=== PATIENT | male | born 1940 | race Caucasian/White ===

== ENCOUNTER 2023-04-22 10:39 | Inpatient (IN) ==
[2023-04-06 11:25] LABS: Basophils # (Auto) 0.06 K/mcL (0.00-0.30); Basophils % (Auto) 0.7 % (0.0-2.0); Eosinophils # (Auto) 0.09 K/mcL (0.00-0.70); Eosinophils % (Auto) 1.1 % (0.0-7.0); Hematocrit 47.3 % (40.1-51.0); Hemoglobin 16.1 g/dL (13.7-17.5); Lymphocytes # (Auto) 1.49 K/mcL (1.50-4.80); Lymphocytes % (Auto) 18.5 % (15.5-49.0); Mean Platelet Volume 8.4 fL (8.8-12.5); Monocytes # (Auto) 0.83 K/mcL (0.10-0.90); Monocytes % (Auto) 10.3 % (1.0-12.0); Platelet Count 167 K/mcL (140-440); RBC 4.78 M/mcL (4.63-6.08); WBC 8.1 K/mcL (4.5-11.0)
[2023-04-06 11:43] LABS: Blood Urea Nitrogen 15 mg/dL (8-23); Calcium 9.6 mg/dL (8.6-10.4); Carbon Dioxide 33 mmol/L (22-30); Chloride 96 mmol/L (96-108); Glomerular Filtration Rate 86; Glucose 92 mg/dL (70-105)
[2023-04-06 13:59] LABS: INR 1.2 (0.9-1.1); Prothrombin Time 15.5 sec (11.9-14.5)
[2023-04-22] MEDS: ceFAZolin 2 GM in DEXTROSE 5% IN WATER 50 ML IV SCH (11:47)
[2023-04-22] MEDS ORDERED: ROCURONIUM 10 MG/ML ML IV ONE (12:02)
[2023-04-22] MEDS ORDERED: PROPOFOL 200 MG/20 ML VIAL IV ONE (12:02)
[2023-04-22] MEDS ORDERED: ONDANSETRON 4 MG/2 ML VIAL ONE (12:02)
[2023-04-22] MEDS ORDERED: fentaNYL 100 MCG/2 ML VIAL ONE (12:02)
[2023-04-22] MEDS: GENTAMICIN SULFATE IV SCH (12:26)
[2023-04-22] MEDS: SODIUM CHLORIDE 0.9% IV SCH (12:26)
[2023-04-22] MEDS ORDERED: fentaNYL 100 MCG/2 ML VIAL IV PRN (12:36)
[2023-04-22] MEDS ORDERED: IPRATROPIUM/ALBUTEROL 3 ML AMPUL.NEB NEB PRN (12:36)
[2023-04-22] MEDS ORDERED: ONDANSETRON 4 MG/2 ML VIAL IV PRN ×2 (12:36→13:05)
[2023-04-22] MEDS ORDERED: NALOXONE HCL 0.4 MG/ML VIAL IV PRN (12:36)
[2023-04-22] MEDS: LIDOCAINE 2% URO-JET 10 ML JEL.PF.APP UR ONE (12:39)
[2023-04-22] MEDS ORDERED: SUGAMMADEX SODIUM 200 MG/2 ML VIAL IV ONE (13:03)
[2023-04-22] MEDS ORDERED: MAGNESIUM HYDROXIDE 30 ML ORAL.SUSP PO PRN (13:05)
[2023-04-22] MEDS ORDERED: MAG HYDROX/AL HYDROX/SIMETH 30 ML ORAL.SUSP PO PRN (13:05)
[2023-04-22] MEDS ORDERED: HYDROcodone/APAP 5/325MG TABLET PO PRN (13:05)
[2023-04-22] MEDS ORDERED: BISACODYL 10 MG SUPP.RECT PR PRN (13:05)
[2023-04-22] MEDS: DEXTROSE 5%-1/2NS W/20MEQ KCL 1,000 ML IV SCH (14:25)
[2023-04-22] MEDS: 0.9 % SODIUM CHLORIDE 10 ML SYRINGE IV SCH (14:26)
[2023-04-22] MEDS: LACTATED RINGERS 1,000 ML IV SCH (14:42)
[2023-04-23 06:14] LABS: Hematocrit 45.9 % (40.1-51.0); Hemoglobin 14.7 g/dL (13.7-17.5); Mean Cell Volume 106.3 fL (80.0-100.0); Mean Platelet Volume 8.8 fL (8.8-12.5); Platelet Count 150 K/mcL (140-440); RBC 4.32 M/mcL (4.63-6.08); Red Cell Distribution Width 12.3 % (11.5-14.5); WBC 12.8 K/mcL (4.5-11.0)
[2023-04-23 06:40] LABS: Blood Urea Nitrogen 18 mg/dL (8-23); Calcium 8.7 mg/dL (8.6-10.4); Carbon Dioxide 33 mmol/L (22-30); Chloride 103 mmol/L (96-108); Glomerular Filtration Rate 99; Glucose 119 mg/dL (70-105)
[2023-04-23] MEDS: HYDROCHLOROTHIAZIDE 25 MG TABLET PO SCH (08:36)
[2023-04-23] MEDS: LOSARTAN 50 MG TABLET PO SCH (08:36)
[2023-04-23] MEDS: DILTIAZEM 240 MG CAP.XL.24H PO SCH (08:36)
[2023-04-23] MEDS ORDERED: IOPAMIDOL 100 ML BOTTLE IV ONE (08:56)
[2023-04-23] MEDS ORDERED: METOPROLOL TARTRATE 5 MG/5 ML VIAL IV PRN (10:45)
[2023-04-23] MEDS ORDERED: MAGNESIUM SULFATE 2 GM/50 ML BAG IV PRN (12:08)
[2023-04-23] MEDS ORDERED: POTASSIUM CHLORIDE 20 MEQ TABLET PO PRN (12:08)
[2023-04-23] MEDS ORDERED: SENNOSIDES 1 TABLET PO PRN (12:08)
[2023-04-23] MEDS ORDERED: POLYETHYLENE GLYCOL 3350 17 GM PACKET PO PRN (12:08)
[2023-04-23] MEDS ORDERED: POTASSIUM CHLORIDE 40 MEQ in DEXTROSE 5% IN WATER 500 ML IV PRN (12:08)
[2023-04-23] MEDS ORDERED: ONDANSETRON 4 MG/2 ML VIAL IV PRN (12:08)
[2023-04-23] MEDS ORDERED: IPRATROPIUM/ALBUTEROL 3 ML AMPUL.NEB NEB PRN (12:08)
[2023-04-23 14:36] LABS: ABG Methemoglobin 0.3 % (0.4-1.5); Total Hemoglobin 16.2 gm/Dl (13.5-16.5); VBG Base Excess 5 (-2-3); VBG HCO3 34.2 mmol/L (24.0-28.0); VBG Oxygen Saturation 91.4 % (40.0-70.0); VBG PO2 107.5 mmHg (25.0-40.0); VBG Total CO2 36.4 mmol/L (25.0-29.0)
[2023-04-23 16:28] LABS: ABG Methemoglobin 0.4 % (0.4-1.5); Total Hemoglobin 16.5 gm/Dl (13.5-16.5); VBG Base Excess 4 (-2-3); VBG HCO3 34.1 mmol/L (24.0-28.0); VBG Oxygen Saturation 86.7 % (40.0-70.0); VBG PH 7.28 U (7.32-7.42); VBG PO2 55.2 mmHg (25.0-40.0); VBG Total CO2 36.4 mmol/L (25.0-29.0)
[2023-04-23] MEDS: DOCUSATE SODIUM 100 MG CAPSULE PO SCH (21:04)
[2023-04-24 07:19] LABS: Basophils # (Auto) 0.02 K/mcL (0.00-0.30); Basophils % (Auto) 0.2 % (0.0-2.0); Eosinophils # (Auto) 0.02 K/mcL (0.00-0.70); Eosinophils % (Auto) 0.2 % (0.0-7.0); Hematocrit 46.4 % (40.1-51.0); Hemoglobin 14.6 g/dL (13.7-17.5); Lymphocytes # (Auto) 0.94 K/mcL (1.50-4.80); Lymphocytes % (Auto) 7.4 % (15.5-49.0); Mean Cell Volume 108.7 fL (80.0-100.0); Mean Corpuscular HGB Conc 31.5 g/dL (31.0-36.0); Mean Platelet Volume 8.9 fL (8.8-12.5); Monocytes # (Auto) 1.37 K/mcL (0.10-0.90); Monocytes % (Auto) 10.8 % (1.0-12.0); Neutrophils % (Auto) 80.5 % (38.0-78.0); Platelet Count 131 K/mcL (140-440); RBC 4.27 M/mcL (4.63-6.08); Red Cell Distribution Width 12.1 % (11.5-14.5); WBC 12.7 K/mcL (4.5-11.0)
[2023-04-24 07:21] LABS: ALT/SGPT 21 U/L (<40); AST/SGOT 22 U/L (<40); Albumin/Globulin Ratio 1.7 (1.0-2.3); Alkaline Phosphatase 54 U/L (39-117); Bilirubin,Direct 0.2 mg/dL (<0.3); Bilirubin,Total 0.6 mg/dL (0.1-1.0); Blood Urea Nitrogen 17 mg/dL (8-23); Carbon Dioxide 36 mmol/L (22-30); Chloride 99 mmol/L (96-108); Globulin 2.4 gm/dL (2.2-3.7); Glomerular Filtration Rate 92; Glucose 132 mg/dL (70-105); Lactate Dehydrogenase 173 U/L (135-225); Phosphorous 2.9 mg/dL (2.5-4.5); Triglycerides 44 mg/dL (<150); Uric Acid 4.9 mg/dL (2.5-8.0)
[2023-04-24 07:43] LABS: ABG Methemoglobin 0.5 % (0.4-1.5); VBG Base Excess 6 (-2-3); VBG HCO3 31.6 mmol/L (24.0-28.0); VBG Oxygen Saturation 90.3 % (40.0-70.0); VBG PCO2 50.3 mmHg (41.0-51.0); VBG PH 7.42 U (7.32-7.42); VBG PO2 113.4 mmHg (25.0-40.0); VBG Total CO2 33.1 mmol/L (25.0-29.0)
[2023-04-24] MEDS: SULFAMETHOXAZOLE/TRIMETHOPRIM 1 TABLET PO SCH (08:05)
[2023-04-24] MEDS: LOSARTAN 50 MG TABLET PO SCH (08:05)
[2023-04-24] MEDS: HYDROCHLOROTHIAZIDE 25 MG TABLET PO SCH (08:05)
[2023-04-24] MEDS: MELATONIN 3 MG TABLET PO PRN (21:32)
[2023-04-24] MEDS: hydrOXYzine 25 MG TABLET PO PRN (21:32)
[2023-04-25] MEDS: POTASSIUM CHLORIDE 20 MEQ TABLET PO PRN (08:13)
[2023-04-25 09:49] LABS: Blood Urea Nitrogen 18 mg/dL (8-23); Calcium 9.3 mg/dL (8.6-10.4); Carbon Dioxide 36 mmol/L (22-30); Chloride 97 mmol/L (96-108); Glomerular Filtration Rate 92; Glucose 144 mg/dL (70-105)
[2023-04-25 09:55] LABS: Basophils # (Auto) 0.06 K/mcL (0.00-0.30); Basophils % (Auto) 0.6 % (0.0-2.0); Eosinophils # (Auto) 0.18 K/mcL (0.00-0.70); Eosinophils % (Auto) 1.7 % (0.0-7.0); Hematocrit 46.6 % (40.1-51.0); Hemoglobin 14.9 g/dL (13.7-17.5); Lymphocytes # (Auto) 1.22 K/mcL (1.50-4.80); Lymphocytes % (Auto) 11.8 % (15.5-49.0); Mean Cell Volume 106.4 fL (80.0-100.0); Mean Platelet Volume 8.9 fL (8.8-12.5); Monocytes # (Auto) 1.12 K/mcL (0.10-0.90); Monocytes % (Auto) 10.8 % (1.0-12.0); Neutrophils % (Auto) 74.7 % (38.0-78.0); Platelet Count 142 K/mcL (140-440); RBC 4.38 M/mcL (4.63-6.08); Red Cell Distribution Width 11.6 % (11.5-14.5); WBC 10.4 K/mcL (4.5-11.0)
[2023-04-25] MEDS: FUROSEMIDE 40 MG/4 ML VIAL IV SCH ×2 (10:12→15:28)
[2023-04-26 07:03] LABS: Blood Urea Nitrogen 21 mg/dL (8-23); Calcium 9.6 mg/dL (8.6-10.4); Carbon Dioxide 37 mmol/L (22-30); Chloride 92 mmol/L (96-108); Glomerular Filtration Rate 86; Glucose 116 mg/dL (70-105)
== END 2023-04-26 14:50 | disposition home or self-care (01) | DRG 713 ==
LOC: MEDSUR 10:39 → SUR 10:39 → MEDSUR 13:56 → ICU 04-23 11:50
PROVIDERS: ADMIT Urology; ATTEND Internal Medicine